=== PATIENT | female | born 1980 | race Caucasian/White ===

== ENCOUNTER 2016-09-23 15:01 | Inpatient (IN) | payer OTHER ==
[~2016-09-23] VITALS: Ht 160 cm; Wt 58.2 kg
[~2016-09-23 15:01] MED LIST: A/B OTIC15 ML; ACTIGALL300 MG PO; ALD25 PO; AMB5 PO; ATA25 PO; BACTRIM DS1 TAB PO; CEL250 PO; CELLCEPT200 MG/ML; CEPACOL SORE TH1 LO4 MM; COLACE100 MG; COLACE100 MG PO; FERROUS SULFAT325 M2 PO; GAS RELIEF80 MG CH; HYDROXYZINE HYD25 MG PO; HYDROXYZINE50 M1; IMITREX50 MG PO; KEFLEX500 M1 PO; KEN025C TOP; LAC PO; LAC15L PO; LAC30L PO; LACTULOSE10 GM/152; LASIX20 MG; LASIX20 MG PO; MAC100 PO; MAGNESIUM OXID400 MG; METOPROLOL SUCC25 M1 PO; MG PLUS PROTEIN1 TAB; ORACEA40 MG; OXYCODONE HYDROC5 M2 PO; PAMELOR25 MG PO; PEPCID20 MG PO; PREDNISONE1 MG PO; PREDNISONE2.5 MG; PROGRAF1 MG; PROGRAF1 MG PO; PROMETHAZINE HY25 M1 PO; PROMETHAZINE12.5 M4; QUEP PO; REG5 PO; ROX5 PO; SEN PO; SPIRONOLACTONE25 MG; TRAMADOL HCL50 MG PO; URSO 250250 MG; URSODIOL300 MG PO; [UNRECOGNIZED DRUG - OTHER]
[2016-09-23 17:42] LABS: BASOPHIL % 0.6 % (0-2); PLATELET COUNT 186 x10^3mcL (130-400)
[2016-09-23 17:46] LABS: RED CELL DISTRIBUTION WIDTH 25.1 % (11.5-14.5)
[2016-09-23 17:50] LABS: CALCIUM 7.5 mg/dL (8.5-10.1); CARBON DIOXIDE 25.8 mmol/L (21-32); CHLORIDE SERUM 114 mmol/L (98-107); CREATININE SERUM 0.8 mg/dL (0.6-1.0); GFR1 > 60 mL/min; GLUCOSE SERUM 77 mg/dL (74-106); POTASSIUM SERUM 3.7 mmol/L (3.5-5.1); SODIUM SERUM 148 mmol/L (136-145)
[2016-09-23 17:54] LABS: microscopic required? YES; urine erythrocyte 2+ (NEGATIVE)
[2016-09-23 17:55] LABS: ALKALINE PHOSPHATASE 316 U/L (46-116); ALT/SGPT 58 U/L (14-59); AST/SGOT 64 U/L (15-37); BILIRUBIN TOTAL 6.34 mg/dL (0.20-1.00)
[2016-09-23 17:56] LABS: ALBUMIN 1.4 g/dL (3.4-5.0); TOTAL PROTEIN, SERUM 5.9 g/dL (6.4-8.2)
[2016-09-23] MEDS ORDERED: XIFAXAN550 M1 PO (18:35)
[2016-09-23] MEDS ORDERED: ELIQUIS5 MG PO (18:35)
[2016-09-23] MEDS ORDERED: NATURE'S BLEND F1 MG PO (18:36)
[2016-09-23] MEDS ORDERED: LACTULOSE10 GM/152 PO (18:36)
[2016-09-23] MEDS ORDERED: FAMOTIDINE40 MG PO (18:36)
[2016-09-23] MEDS ORDERED: MG PLUS PROTEI133 MG PO (18:38)
[2016-09-23] MEDS ORDERED: METOCLOPRAMIDE H5 M1 PO (18:38)
[2016-09-23] MEDS ORDERED: KLOR-CON 1010 MEQ (18:39)
[2016-09-23] MEDS ORDERED: PREDNISONE10 MG PO (18:39)
[2016-09-23] MEDS ORDERED: RIFADIN150 MG PO (18:40)
[2016-09-23] MEDS ORDERED: ALDACTONE25 MG PO (18:40)
[2016-09-23] MEDS ORDERED: PROGRAF1 MG PO (18:41)
[2016-09-23] MEDS ORDERED: TRAMADOL HCL50 MG PO (18:41)
[2016-09-23 19:12] VITALS: BP 128/79
[2016-09-23 19:18] VITALS: Ht 160 cm; Wt 58.2 kg
[2016-09-23 19:39] LABS: MAGNESIUM 1.4 mg/dL (1.8-2.4); PHOSPHOROUS 2.6 mg/dL (2.5-4.9); T3 TOTAL 0.56 ng/mL
[2016-09-23 19:40] LABS: CHOLESTEROL/HDL RATIO 6.2
[2016-09-23 19:46] LABS: FREE T4 1.4 ng/dL (0.76-1.46)
[2016-09-23 19:48] LABS: FREE THYROXINE INDEX 1.5 ug/dL (1.4-4.5); T4(THYROXINE) 3.7 ug/dL (4.7-13.3)
[2016-09-23 21:40] VITALS: BP 138/78
[2016-09-24 06:01] VITALS: BP 128/85
[2016-09-24 07:33] LABS: BASOPHIL % 0.9 % (0-2); PLATELET COUNT 182 x10^3mcL (130-400)
[2016-09-24 07:34] LABS: RED CELL DISTRIBUTION WIDTH 25.1 % (11.5-14.5); rbc morphology (normal/abnorm) ABNORMAL (NORMAL)
[2016-09-24 07:46] VITALS: BP 121/78
[2016-09-24 07:47] LABS: CARBON DIOXIDE 21.8 mmol/L (21-32); CHLORIDE SERUM 114 mmol/L (98-107); CREATININE SERUM 0.7 mg/dL (0.6-1.0); GFR1 > 60 mL/min; GLUCOSE SERUM 67 mg/dL (74-106); MAGNESIUM 1.1 mg/dL (1.8-2.4); PHOSPHOROUS 2.1 mg/dL (2.5-4.9); SODIUM SERUM 144 mmol/L (136-145)
[2016-09-24 09:31] VITALS: BP 127/70
[2016-09-24 14:31] VITALS: BP 134/87
[2016-09-24 14:33] LABS: RED BLOOD CELLS 2.74 M/mm3 (4.10-5.10)
[2016-09-24 16:36] LABS: IRON 35 ug/dL (50-170)
[2016-09-24 16:37] LABS: TOTAL IRON BINDING CAPACITY 204 ug/dL (250-450)
[2016-09-24 17:40] VITALS: BP 109/64
[2016-09-24 22:00] VITALS: BP 117/70
[2016-09-25 06:08] LABS: BASOPHIL % 0.5 % (0-2); PLATELET COUNT 188 x10^3mcL (130-400)
[2016-09-25 06:12] VITALS: BP 122/71
[2016-09-25 06:19] LABS: RED CELL DISTRIBUTION WIDTH 24.8 % (11.5-14.5)
[2016-09-25 06:35] LABS: CALCIUM 7.2 mg/dL (8.5-10.1); CARBON DIOXIDE 22.4 mmol/L (21-32); CHLORIDE SERUM 111 mmol/L (98-107); CREATININE SERUM 0.7 mg/dL (0.6-1.0); GFR1 > 60 mL/min; GLUCOSE SERUM 88 mg/dL (74-106); MAGNESIUM 1.7 mg/dL (1.8-2.4); PHOSPHOROUS 2.3 mg/dL (2.5-4.9); POTASSIUM SERUM 3.8 mmol/L (3.5-5.1); SODIUM SERUM 143 mmol/L (136-145)
[2016-09-25 07:58] LABS: schistocyte (helmet cell) 1+; target cell (codocyte) 2+; tear drop cell (dacryocyte) 1+
[2016-09-25 07:59] LABS: rbc morphology (normal/abnorm) ABNORMAL (NORMAL)
[2016-09-25 09:21] VITALS: BP 114/65
[2016-09-25] MEDS ORDERED: SPIRONOLACTONE100 MG PO (13:32)
[2016-09-25] MEDS ORDERED: LASIX40 MG PO (13:32)
[2016-09-25 13:38] VITALS: BP 114/65
[2016-09-25 13:41] VITALS: BP 121/71
== END 2016-09-25 14:11 | disposition home or self-care (01) | DRG 432 ==
LOC: ED 15:01 → DU 18:17
PROVIDERS: Emergency Medicine; Family Medicine; ADMIT Student in an Organized Health Care Education/Training Program
DX: K70.31 Alcoholic cirrhosis of liver with ascites (principal); E43 Unspecified severe protein-calorie malnutrition; I50.43 Acute on chronic combined systolic (congestive) and diastolic (congestive) heart failure; Z94.4 Liver transplant status; T86.42 Liver transplant failure; E87.0 Hyperosmolality and hypernatremia; I42.9 Cardiomyopathy, unspecified; E87.70 Fluid overload, unspecified; B19.20 Unspecified viral hepatitis C without hepatic coma; D63.8 Anemia in other chronic diseases classified elsewhere; E83.42 Hypomagnesemia; E83.51 Hypocalcemia; E83.39 Other disorders of phosphorus metabolism; E11.9 Type 2 diabetes mellitus without complications; E05.90 Thyrotoxicosis, unspecified without thyrotoxic crisis or storm; F10.10 Alcohol abuse, uncomplicated; Z68.22 Body mass index [BMI] 22.0-22.9, adult; Z79.52 Long term (current) use of systemic steroids
CPT/HCPCS: 82962; 83880; 84439; J2270; J3475; J7030; J7507; J7512; J8597; Q0092; Q0163

== ENCOUNTER 2016-11-09 18:06 | Inpatient (IN) | payer OTHER, MEDICAID ==
[~2016-11-09] VITALS: Ht 160 cm; Wt 56.7 kg
[~2016-11-09 18:06] MED LIST changes: +ALDACTONE25 MG PO; +ELIQUIS5 MG PO; +FAMOTIDINE40 MG PO; +KLOR-CON 1010 MEQ; +LACTULOSE10 GM/152 PO; +LASIX40 MG PO; +METOCLOPRAMIDE H5 M1 PO; +MG PLUS PROTEI133 MG PO; +NATURE'S BLEND F1 MG PO; +PREDNISONE10 MG PO; +RIFADIN150 MG PO; +SPIRONOLACTONE100 MG PO; +XIFAXAN550 M1 PO
--- NOTE | 2016-11-09 18:36 | NUR ---
AMBULATORY TO BED 7. C/O EDEMA TO BLE X2 DAYS. PT STATES SHE WAS BORN WITH LIVER DISEASE, AND HAD LIVER TRANSPLANT IN 1994.
--- NOTE | 2016-11-09 19:30 | NUR ---
PATIENT SEEN IN BED WITH COMPLAINT OF LEG AND ABDOMINAL PAIN. PATIENT IS WAIITNG TO BE SEEN BY .
--- NOTE | 2016-11-09 20:11 | NUR ---
PATIENT WAS SEEN BY . TECH IS AT THE BEDSIDE DOING ULTRASOUND.
[2016-11-09 20:24] LABS: BASOPHIL % 0.3 % (0-2); PLATELET COUNT 148 x10^3mcL (130-400)
[2016-11-09 20:30] LABS: RED CELL DISTRIBUTION WIDTH 20.6 % (11.5-14.5)
[2016-11-09 20:52] LABS: rbc morphology (normal/abnorm) ABNORMAL (NORMAL)
[2016-11-09 21:27] LABS: ALKALINE PHOSPHATASE 454 U/L (46-116); ALT/SGPT 63 U/L (14-59); AMYLASE 72 U/L (25-115); AST/SGOT 123 U/L (15-37); BILIRUBIN TOTAL 7.56 mg/dL (0.20-1.00); CALCIUM 7.7 mg/dL (8.5-10.1); CARBON DIOXIDE 26.8 mmol/L (21-32); CHLORIDE SERUM 112 mmol/L (98-107); CREATININE SERUM 0.7 mg/dL (0.6-1.0); GFR1 > 60 mL/min; GLUCOSE SERUM 110 mg/dL (74-106); LIPASE 135 IU/L (73-393); MAGNESIUM 1.9 mg/dL (1.8-2.4); POTASSIUM SERUM 3.2 mmol/L (3.5-5.1); SODIUM SERUM 142 mmol/L (136-145)
[2016-11-09 21:36] LABS: ALBUMIN 1.4 g/dL (3.4-5.0); CHOLESTEROL 103 mg/dL (<200); HDL CHOLESTEROL 16 mg/dL (40-60); T4(THYROXINE) 4.5 ug/dL (4.7-13.3); TOTAL PROTEIN, SERUM 5.4 g/dL (6.4-8.2)
--- NOTE | 2016-11-09 22:37 | NUR ---
REPORT WAS GIVEN TO ARCELIA. PATIENT TRANSPORTED TO ROOM 236
[2016-11-09 22:58] LABS: microscopic required? YES
[2016-11-09 22:59] LABS: urine erythrocyte 2+ (NEGATIVE)
[2016-11-09 23:01] LABS: AMPHETAMINE QUAL UR NONE DETECTED (NEG <=1000)
[2016-11-09 23:06] VITALS: BP 108/63
[2016-11-09 23:08] VITALS: BP 108/63
--- NOTE | 2016-11-09 23:13 | NUR ---
RECEIVED PATIENT FROM ED VIA GUERNEY, PATIENT ALERT AND ORIENTED, TELE # 11 SR, IV ACCESS TO LFA WNL, C/O PAIN TO BLE WILL MEDICATE ORDERED, PATIENT WITH JAUNDICE, ORIENTED PATIENT TO ROOM AND SURROUNDINGS, BED IN LOW POSITION, BED RAILS UP X 2, CALL LIGHT WITHIN REACH, WILL ENDORSE CARE TO PRIMARY NURSE ARCELIA JONES
--- NOTE | 2016-11-10 00:10 | NUR ---
IVF NS AT AT 100CC/HR INFUSING WELL VIA PERIPHERAL LINE AT THE LEFT HAND . . ALL DUE MEDICATIONS GIVEN ORDERED AND WELL TOLERATED. PLACED CALL LIGTH WITHIN REACH, INSTRUCTED TO CALL FOR ANY ASSSITANCE NEEDED AND VERBALIZED UNDERSTANDING.
[2016-11-10 02:00] VITALS: BP 103/58
--- NOTE | 2016-11-10 02:00 | NUR ---
C/O SLIGHT DIZZINESS AFTER LASIX WAS GIVEN, VITAL SIGNS TAKEN AND RECORDED, IG=383/58, 02 SAT=98% AT RA. DR SALINAS MADE AWARE, WILL CONTINUE TO MONITOR.
[2016-11-10 05:30] VITALS: BP 123/64
--- NOTE | 2016-11-10 05:44 | NUR ---
MAINTAINED ON ZOSYN ATB IVPB FOR MANAGEMENT OF CHOLAGITIS/UTI WITHOUT ADVERSE REACTION NOTED. APPARENTLY COMFORTABLE AT THIS TIME. CALL LIGHT WITHIN REACH. ALL NEEDS ATTENDED.
--- NOTE | 2016-11-10 07:30 | NUR ---
PT RECEIVED. AT THIS TIME THE PATIENT IS RESTING IN BED. TELE MONITOR IN PLACE. IV INFUSING PER ORDER, IS PATENT AND APPEARS WNL. ALL SAFETY MEASURES ARE CURRENTLY IN PLACE. WILL CONTINUE TO MONITOR.
[2016-11-10 07:59] LABS: BASOPHIL % 0.3 % (0-2); PLATELET COUNT 154 x10^3mcL (130-400)
[2016-11-10 08:04] LABS: rbc morphology (normal/abnorm) ABNORMAL (NORMAL)
[2016-11-10 09:25] VITALS: BP 104/58
--- NOTE | 2016-11-10 12:00 | NUR ---
PATIENT IS RESTING IN BED AT THIS TIME. NO ACUTE CHANGES TO CONDITION. ALL SAFETY MEASURES IN PLACE. WILL CONTINUE TO MONITOR.
[2016-11-10 13:30] VITALS: BP 109/63
[2016-11-10 17:32] VITALS: BP 119/67
--- NOTE | 2016-11-10 19:20 | NUR ---
REPORT GIVEN TO NIGHT NURSE. AT THIS TIME THE PATIENT IS RESTING IN BED. NO ACUTE CHANGES TO CONDITION. PATIENT RESPIRATIONS ARE EVEN AND UNLABORED ON ROOM AIR. IV INFUSING PER ORDER, PATENT, WNL.
--- NOTE | 2016-11-10 20:14 | NUR ---
AWAKE AND VERBALLY RESPONSIVE. ABLE TO MAKE NEEDS KNOW, SKIN WARM ANDD RY TO TOUCH. PAIN LEVEL AT THIS TIME 2/10, BEARABLE , WAS GIVEN MORPHINE 2MG IVP BY AM RN ORDERED. ENCOURAGED TO REPOSITION SELF MORE OFTE, CALL LIGHT WITHIN REACH. WILL CONTINUE TO MONITOR.
[2016-11-10 21:47] VITALS: BP 123/71
--- NOTE | 2016-11-11 01:10 | NUR ---
C/O SEVERE BILATERAL LEG PAIN/ABDOMINAL PAIN ON SCALE 8/10. MORPHINE 2MG GIVEN IVP PRN MEDICATION. ABLE TO REPOSITION SELF IN BED, PLACED CALL LIGHT WITHIN REACH, INSTRUCTED TO CALL FOR ANY ASSISTANCE NEEDED AND VERBALIZED UNDERSTANDING.
[2016-11-11 05:31] VITALS: BP 109/64
--- NOTE | 2016-11-11 05:42 | NUR ---
CONTINUES ON ATB ICPB FOR MANAGEMENT OF CHOLAGITUS AND UTI ORDERED. VÍCTOR DVERSE REACTION NOTED. BS=68MG/DL, ON CLEAR LIQUID DIET, APPLE JUICE GIVEN AND WELL TOLERATED. KEPT CLEAN AND DRY. ALL NEEDS ATTENDED.
[2016-11-11 07:28] LABS: CALCIUM 7.3 mg/dL (8.5-10.1); CARBON DIOXIDE 26.7 mmol/L (21-32); CHLORIDE SERUM 110 mmol/L (98-107); CREATININE SERUM 0.9 mg/dL (0.6-1.0); GFR1 > 60 mL/min; GLUCOSE SERUM 101 mg/dL (74-106); SODIUM SERUM 142 mmol/L (136-145)
[2016-11-11 07:43] LABS: POTASSIUM SERUM 2.9 mmol/L (3.5-5.1)
[2016-11-11 07:49] LABS: BASOPHIL % 1.1 % (0-2); PLATELET COUNT 141 x10^3mcL (130-400)
--- NOTE | 2016-11-11 07:50 | NUR ---
RC'D PT RESTING IN BED WITH NO APPARENT SIGNS OF DISTRESS. A/A/O/X4, SPEECH CLEAR AND APPROPRIATE. PT REPORTS [place] IN LEFT EAR. ON TELE 11 WITH SR. DENIES CHEST PAIN/PRESSURE. PALP PULSES. RESPIRATIONS EQUAL AND UNLBAORED BILAT. LUNGS CLEAR TO AUSCULTATION. DENIES SOB. ON RA. ABDOMEN DISTENDED SOFT AND NONTENDER. ACTIVE BS. VOIDS FREELY, DENIES BURNING. GENERALIZED WEAKNESS. AMBULATORY WITH BRP. SKIN W/D/I. DENIES PAIN AT THIS TIME. IV RUNNING NS AT 10ML/HR. PT IS CALM AND COOPERATIVE. EDUCATED ON USING CALL LIGHT WHEN NEEDING ASSISTANCE. CALL LIGHT IN REACH. BED IN LOW POSITION. WILL CONTINUE TO MONITOR.
[2016-11-11 07:54] LABS: RED CELL DISTRIBUTION WIDTH 20.4 % (11.5-14.5)
[2016-11-11 07:56] LABS: rbc morphology (normal/abnorm) ABNORMAL (NORMAL)
[2016-11-11 09:37] VITALS: BP 115/69
--- NOTE | 2016-11-11 12:14 | NUR ---
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 as , mesenteric vein thrombosis (per pt's medical records), anemia of chronic disease, chronic hyperbilirubinemia, chronic transaminitis, chronic inflammation of pancreas PSHx: Liver transplant (1994, 1995) Labs: K 2.9 L, BG 101, BUN 6 L, Ammonia 72 H (trending down), H/H 8.5/26 L; (11/10) Troponin 0.189 H; (11/09) ALB 1.4 L, TBili 7.56 H, AST 123 H, ALT 63 H, ALP 454 H, CK 777 H, A1C 3.7 L Meds: Aldactone, cephulac, D50, folic acid, humulin R, lactinex, Lasix, prednisone, prograf, reglan, NS IV, theragran, zofran Current Diet Order: Clear Liquid, 2 gm Na, Low Cholesterol PO Intakes: (11/10) L: 50%, D: 0%; (11/11) B: 100% Ht: 63", 5' 3". Wt: 125 lb, 57 kg. BMI: 22.1 kg/m2 (Normal) IBW: 115 lb, 52 kg. %IBW: 110%. UBW: Pt unable to recall. Wt Hx: (09/14/16) 128 lb, 58 kg; (05/18/16) 130 lb, 59 kg Estimated Dry Wt: Pt unable to recall. Age: 36 Y/O F Food Allergies: None Skin: Intact. Jeremy 20. Edema: 2+ BLE GI: Last BM 11/08. Nutrition Consult: Hepatic Failure, Rejected Liver Transplant. 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 Per doctor's progress note /2, per Dr. Arce, no intervention at this time, supportive care, bilateral lower leg pain and swelling has been improving, relief of abd pain, asked to have her diet changed, states food causing her to have discomfort, diet changed, pt states having improvement; Pt with chronic rejected liver transplant with decompensation of liver disease secondary to cirrhosis. Pt was seen resting in bed, hard of hearing, lost her hearing aids. Pt stated that she is able to tolerate the Clear Liquid diet well, was on a regular textured diet before, however, had abd pain, and unable to tolerate solid foods at this time. Pt stated she had some chicken broth and apple juice this morning, no abd pain, no nausea/vomiting, willing to try full liquid diet with boost oral supplement in between meals. Pt also agreeable to have half turkey sandwich in between meals with yogurt once diet advances to more solid foods. Spoke with Dr. Kirby regarding recommendations, doctor agreeable with RD recommendations. Problem with: N: None. V: None. D: None. C: None. Problems with: Chewing: None. Swallowing: None. Current Appetite: Fair to Good Recent Weight Change: -3 lb. % Weight Change: 2.3% weight loss within 2 months - Likely fluids Vitamin/Supplement use: None Diet at Home: 2 gm Sodium Physical Activity: Walks Education: Pt declined further education when RD offered, stated that she knows she needs to be on a low sodium diet, and is compliant to the diet prior to admission. Noted pt received prior nutrition education on cirrhosis MNT materials on 05/18/[address], however, did not want verbal education, just accepted handouts; Pt was mildly receptive, noted to be non-compliant with medications and diet. Estimated Nutritional Needs Based CBW 125 lb, 57 kg. Energy: 5965-4853 kcal/day (30-35 kcal/kg for Hepatic Encephalopathy) Protein: 46-68 gm/day (0.8-1.2 gm/kg for Hepatic Encephalopathy) - Advance to 1.2-1.5 gm/kg as Encephalopathy resolves Fluids: 1140 ml/day (20 ml/kg for Edema) or per doctor Nutrition Diagnosis 1. Altered nutrition related labs related to impaired liver function as evidenced by elevated TBili 7.56, AST 123, ALT 63, ALP 454, Ammonia 72 2. Increase nutritional needs (energy, protein, vitamin, mineral) related to increased demands as evidenced by diagnosis of liver failure w2ith catabolic state Intervention 1. Recommend Full Liquid, 2 gm Na diet. 2. Consider advance as tolerated to 2 gm Na diet (6 small meals) if/when medically appropriate. 3. RD to arrange HS snack with 30-45 gm CHO HS snack once PO diet advances. 4. Recommend Nephro-jim 1 tab PO daily. 5. Recommend Zinc Sulfate 220 mg PO daily. Monitor/Evaluate Goal: PO intakes to meet >75% of estimated needs Monitor: PO intakes, tolerance to diet, labs (ammonia, liver panel), skin integrity, GI function F/U in 3-5 days as MODERATE risk (11/14-11/16)
--- NOTE | 2016-11-11 13:41 | NUR ---
PT RESTING IN BED WITH NO APPARENT SIGNS OF DISTRESS. RESPIRATIONS EQUAL AND UNLABORED BILAT. CALL LIGHT IN REACH. WILL CONTINUE TO MONITOR.
[2016-11-11 13:45] VITALS: BP 118/76
[2016-11-11 17:23] VITALS: BP 110/58
--- NOTE | 2016-11-11 18:28 | NUR ---
PT RESTING IN BED WITH EYES CLOSED. NO APPARENT SIGNS OF DISTRESS. RESPIRATIONS EQUAL AND UNLABORED BILAT. ON TELE 11 WITH SR. LEFT HAND IV RUNNING NS AT 10ML/HR, WNL. CALL LIGHT IN REACH. BED IN LOW POSITION
--- NOTE | 2016-11-11 20:17 | NUR ---
AWAKE AND VERBALLY RESPONISVE, C/O SEVERE BILATERAL LEG PAIN/ABDOMINAL PAIN 10/18. MORPHINE 2MG GIVEN IVP PRN MEDICATION. INSTRUCTED TO REPOSITION SELF IN BED AT LEAST Q2HRS, BILATERAL LEGS KEPT ELEVATED WITH PILLOWS. PLACED CALL LIGHT WITHIN REACH . WILL CONTINUE TO MONITOR.
[2016-11-11 23:15] VITALS: BP 114/70
--- NOTE | 2016-11-12 00:01 | NUR ---
EYES CLSOED, NOF ACIAL GRIMACING NOTED. RESPIRATIONE [place] AND UNLABORED. NO S/S OF PAIN/DISCOMFORT. WILL CONTINUE TO MONITOR.
--- NOTE | 2016-11-12 05:32 | NUR ---
DUE MEDICATIONS GIVEN ORDERED AND WELL TOLERATED. NO ADVERSE REACTION NOTED FROM ATB THERAPY. STILL WITH INTERMITTENT BILATERAL LEG PAIN/ABDOMIANL PAIN RELIEVED BU MORPHINE 2MG IVP ORDERED. BLOOD SUGAR 63MG/DL, ORANGE HUICE GIVEN. NO S/S OF GLYCEMIC REATION. ALL NEEDS ATTENDED.
[2016-11-12 06:23] VITALS: BP 116/59
[2016-11-12 06:36] LABS: PLATELET COUNT 144 x10^3mcL (130-400)
[2016-11-12 06:37] LABS: CALCIUM 7.5 mg/dL (8.5-10.1); CARBON DIOXIDE 25.5 mmol/L (21-32); CHLORIDE SERUM 110 mmol/L (98-107); CREATININE SERUM 0.9 mg/dL (0.6-1.0); GFR1 > 60 mL/min; GLUCOSE SERUM 145 mg/dL (74-106); POTASSIUM SERUM 3.7 mmol/L (3.5-5.1); SODIUM SERUM 138 mmol/L (136-145)
--- NOTE | 2016-11-12 07:00 | NUR ---
PT WAS ENDORSE TO ME THIS MORNING. PT IS SLEEPING VERY COMFORTBLE. BREATHING EVEN AND UNLABORED, NO RESP DISTRESS NOTED. TELE 11 NSR. LUNGS CLEAR. IV SITE TO THE LEFT HAND INFUSING 10 ML/HR. NO REDNESS OR SWELLING NOTED. CALL LIGHT IN REACH. BED IN LOW POSITION. WILL CONTINUE PLAN OF CARE.
[2016-11-12 09:24] VITALS: BP 109/60
--- NOTE | 2016-11-12 09:48 | NUR ---
PT C/O RIGHT ABD PAIN. MEDICATED WITH MORPHINE.
[2016-11-12 11:48] LABS: BAND NEUTROPHIL 1 % (0-10); BASOPHIL 0 % (0-2); MONOCYTE 8 % (0-7); PLATELET MORPHOLOGY PLATELETS DECREASED; SEGMENTED NEUTROPHILS 62 % (37-75); rbc morphology (normal/abnorm) ABNORMAL (NORMAL)
[2016-11-12] MEDS ORDERED: RIFADIN150 MG PO (12:11)
[2016-11-12] MEDS ORDERED: LASIX40 MG PO (12:12)
[2016-11-12] MEDS ORDERED: LEVAQUIN750 MG PO (12:16)
[2016-11-12 13:16] VITALS: BP 109/60
--- NOTE | 2016-11-12 14:51 | NUR ---
EXPLAINED DISCHARGE INSTRUCTIONS. PT AGREED AND SIGNED ALL DOCUMENTS. REMOVED IV TO THE LEFT HAND. NO REDNESS OR SWELLING NOTEDL. PT A/O X4 , BREATHING EVEN AND UNLABORED. PT DENIES ANY DISCOMFORT OR PAIN AT THIS TIME. GEOFF LOFTON WHEELED PT DOWN TO DISCHARGE LOBBY. PT RIDE IS WAITING FOR HER.
== END 2016-11-12 14:51 | disposition home or self-care (01) | DRG 441 ==
LOC: ED 18:06 → DU 22:02 → MU 11-12 12:55
PROVIDERS: Emergency Medicine; ADMIT Family Medicine
DX: T86.41 Liver transplant rejection (principal); N17.0 Acute kidney failure with tubular necrosis; Q44.2 Atresia of bile ducts; E43 Unspecified severe protein-calorie malnutrition; I50.43 Acute on chronic combined systolic (congestive) and diastolic (congestive) heart failure; N39.0 Urinary tract infection, site not specified; I24.8 Other forms of acute ischemic heart disease; K74.60 Unspecified cirrhosis of liver; B18.2 Chronic viral hepatitis C; E87.6 Hypokalemia; E83.39 Other disorders of phosphorus metabolism; R31.9 Hematuria, unspecified; H91.92 Unspecified hearing loss, left ear; Z68.22 Body mass index [BMI] 22.0-22.9, adult; Z79.52 Long term (current) use of systemic steroids; Z87.891 Personal history of nicotine dependence; Z79.01 Long term (current) use of anticoagulants
CPT/HCPCS: 82962; 83880; G0480; J2270; J2543; J7030; J7507; J7512; J8597; Q0092

== ENCOUNTER 2016-12-20 05:43 | Inpatient (IN) | payer OTHER ==
[~2016-12-20] VITALS: Ht 160 cm; Wt 60.4 kg
[~2016-12-20 05:43] MED LIST changes: +LEVAQUIN750 MG PO
[2016-12-20 06:54] LABS: BASOPHIL % 0.3 % (0-2); PLATELET COUNT 141 x10^3mcL (130-400)
[2016-12-20 07:07] LABS: CALCIUM 7.4 mg/dL (8.5-10.1); CARBON DIOXIDE 22.5 mmol/L (21-32); CHLORIDE SERUM 110 mmol/L (98-107); CREATININE SERUM 0.6 mg/dL (0.6-1.0); GFR1 > 60 mL/min; GLUCOSE SERUM 86 mg/dL (74-106); POTASSIUM SERUM 3.9 mmol/L (3.5-5.1); SODIUM SERUM 139 mmol/L (136-145)
[2016-12-20 07:08] LABS: RED CELL DISTRIBUTION WIDTH 23.1 % (11.5-14.5)
[2016-12-20 07:20] LABS: ALKALINE PHOSPHATASE 462 U/L (46-116); ALT/SGPT 104 U/L (14-59); AST/SGOT 167 U/L (15-37); BILIRUBIN TOTAL 7.12 mg/dL (0.20-1.00); C REACTIVE PROTEIN 1.8 mg/dL (<=0.9); CK-MB 2.5 ng/mL (0-3.6)
[2016-12-20 07:25] LABS: ALBUMIN 1.3 g/dL (3.4-5.0); TOTAL PROTEIN, SERUM 5.8 g/dL (6.4-8.2)
[2016-12-20 07:26] LABS: T3 TOTAL 0.5 ng/mL
[2016-12-20] MEDS ORDERED: LASIX20 MG PO (07:27)
[2016-12-20] MEDS ORDERED: ALDACTONE25 MG PO (07:28)
[2016-12-20 07:49] LABS: rbc morphology (normal/abnorm) ABNORMAL (NORMAL); target cell (codocyte) 2+
[2016-12-20 07:50] LABS: schistocyte (helmet cell) 2+
[2016-12-20 07:59] LABS: ERYTHROCYTE SED RATE 39 mm/hr (0-20)
[2016-12-20 08:01] LABS: FREE T4 1.26 ng/dL (0.76-1.46)
[2016-12-20 08:11] LABS: T4(THYROXINE) 4.6 ug/dL (4.7-13.3)
[2016-12-20 09:07] LABS: microscopic required? NO
[2016-12-20 09:24] LABS: urine erythrocyte NEGATIVE (NEGATIVE)
[2016-12-20 10:46] VITALS: BP 122/69
[2016-12-20 11:17] LABS: MAGNESIUM 1.6 mg/dL (1.8-2.4); PHOSPHOROUS 2.9 mg/dL (2.5-4.9)
[2016-12-20 12:34] VITALS: BP 122/69
[2016-12-20 12:41] VITALS: BP 140/50
[2016-12-20 16:34] VITALS: BP 113/56
[2016-12-20 17:26] LABS: AMPHETAMINE QUAL UR NONE DETECTED (NEG <=1000)
[2016-12-20 21:25] VITALS: BP 120/71
[2016-12-21 06:05] VITALS: BP 111/63
[2016-12-21 06:15] LABS: CALCIUM 6.9 mg/dL (8.5-10.1); CARBON DIOXIDE 24.3 mmol/L (21-32); CHLORIDE SERUM 112 mmol/L (98-107); CREATININE SERUM 0.7 mg/dL (0.6-1.0); GFR1 > 60 mL/min; GLUCOSE SERUM 63 mg/dL (74-106); MAGNESIUM 1.5 mg/dL (1.8-2.4); PHOSPHOROUS 2.7 mg/dL (2.5-4.9); POTASSIUM SERUM 3.2 mmol/L (3.5-5.1); SODIUM SERUM 143 mmol/L (136-145)
[2016-12-21 07:02] LABS: BASOPHIL % 0.7 % (0-2); PLATELET COUNT 144 x10^3mcL (130-400)
[2016-12-21 07:03] LABS: RED CELL DISTRIBUTION WIDTH 23.6 % (11.5-14.5)
[2016-12-21 09:47] VITALS: BP 123/67
[2016-12-21 13:25] VITALS: BP 136/75
[2016-12-21 17:47] VITALS: BP 129/68
[2016-12-21 21:27] VITALS: BP 145/84
[2016-12-22 05:41] VITALS: BP 131/87
[2016-12-22 07:14] LABS: BASOPHIL % 0.9 % (0-2); CALCIUM 7.2 mg/dL (8.5-10.1); CARBON DIOXIDE 23.4 mmol/L (21-32); CHLORIDE SERUM 112 mmol/L (98-107); CREATININE SERUM 0.8 mg/dL (0.6-1.0); GFR1 > 60 mL/min; GLUCOSE SERUM 113 mg/dL (74-106); MAGNESIUM 1.7 mg/dL (1.8-2.4); PLATELET COUNT 168 x10^3mcL (130-400); POTASSIUM SERUM 3.1 mmol/L (3.5-5.1); RED CELL DISTRIBUTION WIDTH 23.5 % (11.5-14.5); SODIUM SERUM 140 mmol/L (136-145)
[2016-12-22 07:15] LABS: rbc morphology (normal/abnorm) ABNORMAL (NORMAL)
[2016-12-22 08:29] VITALS: BP 135/84
[2016-12-22 13:30] VITALS: BP 134/82
[2016-12-22] MEDS ORDERED: MAGNESIUM400 MG PO (17:22)
[2016-12-22] MEDS ORDERED: XIFAXAN550 M1 PO ×3 (17:23→18:33)
[2016-12-22] MEDS ORDERED: FER300 PO ×2 (17:24→18:30)
[2016-12-22] MEDS ORDERED: KLOR-CON 1010 MEQ PO (17:26)
[2016-12-22 18:01] VITALS: BP 109/50
[2016-12-22 18:09] VITALS: BP 109/50
== END 2016-12-22 19:00 | disposition hospice, home (50) | DRG 441 ==
LOC: ED 05:43 → DU 09:27 → MU 12-22 07:44
PROVIDERS: Specialist; ADMIT Family Medicine
DX: K72.90 Hepatic failure, unspecified without coma (principal); E43 Unspecified severe protein-calorie malnutrition; I50.43 Acute on chronic combined systolic (congestive) and diastolic (congestive) heart failure; K83.1 Obstruction of bile duct; T86.41 Liver transplant rejection; Z94.4 Liver transplant status; I24.8 Other forms of acute ischemic heart disease; F33.2 Major depressive disorder, recurrent severe without psychotic features; K74.60 Unspecified cirrhosis of liver; D63.8 Anemia in other chronic diseases classified elsewhere; Z68.22 Body mass index [BMI] 22.0-22.9, adult; Z87.891 Personal history of nicotine dependence
CPT/HCPCS: 82962; 83880; 84439; J1940; J2270; J2765; J3475; J3480; J7030; J7040; J7507; J7512; J8597; Q0092